=== PATIENT | female | born 1960 | race Caucasian/White ===

== ENCOUNTER → 2019-09-10 | Outpatient (CLI) | payer OTHER ==
[~2019-09-10] MED LIST: ALBUTEROL INH; MULTI-VITAMIN1 EAC1 PO; PHENERGAN 25 MG25 MG PO; PREDNISONE 20 M20 MG PO; SONATA10 MG PO; WELLBUTRIN XL150 M1 PO; ZPAK
== END ==
LOC: M.LAB 16:23
PROVIDERS: ATTEND Internal Medicine Gastroenterology
DX: Z01.812 Encounter for preprocedural laboratory examination (principal); Z11.59 Encounter for screening for other viral diseases; R13.10 Dysphagia, unspecified; K22.2 Esophageal obstruction; K21.9 Gastro-esophageal reflux disease without esophagitis